=== PATIENT | female | born 1955 | race Caucasian/White ===

== ENCOUNTER 2019-06-30 06:07 | Inpatient (IN) | payer MEDICARE, MEDICAID ==
[~2019-06-30] VITALS: Ht 154.9 cm; Wt 74.4 kg
[~2019-06-30 06:07] MED LIST: LACTATED RINGERS 1,000 ML IV SCH
[2019-06-30] MEDS ORDERED: IPRATROPIUM/ALBUTEROL 0.5-3(2.5)MG/3ML NEB HHN ONE (07:00)
[2019-06-30] MEDS ORDERED: INDOCYANINE GREEN 25 MG VIAL IV ONE (07:02)
[2019-06-30] MEDS ORDERED: BACITRACIN 50,000 UNITS/VIAL ONE (07:03)
[2019-06-30] MEDS ORDERED: BUPIVACAINE HCL/PF 0.5% (5MG/ML) 10ML ONE (07:03)
[2019-06-30] MEDS ORDERED: LIDOCAINE HCL 1% 20ML VIAL (Pyxis) INJ ONE (07:03)
[2019-06-30 07:16] LABS: CHLORIDE 105 mEq/L (98-107)
[2019-06-30] MEDS ORDERED: SKIN ADHESIVE 0.7 GM EA TOP ONE ×2 (07:34→07:35)
[2019-06-30] MEDS ORDERED: LIDOCAINE HCL/PF 1% 10 MG/ML 5ML VIAL ONE (07:38)
[2019-06-30] MEDS ORDERED: MIDAZOLAM HCL 2 MG/2 ML VIAL ONE (07:38)
[2019-06-30] MEDS ORDERED: PROPOFOL 200MG/20ML VIAL IV ONE (07:38)
[2019-06-30] MEDS ORDERED: FENTANYL CITRATE/PF 50MCG/ML 2ML VIAL ONE ×4 (07:38→11:04)
[2019-06-30] MEDS ORDERED: ROCURONIUM BROMIDE 10MG/ML VIAL 5ML IV ONE ×2 (07:38→11:02)
[2019-06-30] MEDS ORDERED: DEXAMETHASONE 4MG/ML 1ML VIAL ONE (07:39)
[2019-06-30] MEDS ORDERED: PHENYLEPHRINE HCL 10 MG/ML 1ML (IV VIAL) IV ONE (07:39)
[2019-06-30] MEDS ORDERED: SUCCINYLCHOLINE CHLORIDE 200MG/10ML IV ONE ×2 (07:39→15:13)
[2019-06-30] MEDS ORDERED: EPHEDRINE SULFATE 50MG/ML VIAL ONE ×2 (07:39→08:43)
[2019-06-30] MEDS ORDERED: SODIUM CHLORIDE 0.9% 10ML VIAL ONE ×2 (07:51→08:30)
[2019-06-30] MEDS ORDERED: GLYCOPYRROLATE 0.2 MG/ML 2ML VIAL ONE ×2 (08:40→11:43)
[2019-06-30] MEDS ORDERED: DOCU-272 PO (11:06)
[2019-06-30] MEDS ORDERED: UMEC1DIS IH (11:06)
[2019-06-30] MEDS ORDERED: HYDR4TAB56 PO (11:06)
[2019-06-30] MEDS ORDERED: OMEP40CA34 PO (11:06)
[2019-06-30] MEDS ORDERED: MONT10TA24 PO (11:06)
[2019-06-30] MEDS ORDERED: DIVA125T31 PO (11:06)
[2019-06-30] MEDS ORDERED: LEVO50TA8 PO (11:06)
[2019-06-30] MEDS ORDERED: DULO60CA64 PO (11:06)
[2019-06-30] MEDS ORDERED: DIAZ10TA4 PO (11:06)
[2019-06-30] MEDS ORDERED: FLOV44 IH (11:06)
[2019-06-30] MEDS ORDERED: NEOSTIGMINE METHYLSULFATE 1MG/ML 10 ML VIAL ONE (11:43)
[2019-06-30] MEDS ORDERED: ESMOLOL HCL 10MG/ML 10ML VIAL IV ONE ×2 (15:21→16:42)
[2019-06-30] MEDS ORDERED: HYDRALAZINE 20MG/ML VIAL ONE (15:24)
[2019-06-30] MEDS ORDERED: HYDROMORPHONE HCL/PF 2MG/ML CPJ IV PRN (17:15)
[2019-06-30] MEDS ORDERED: DIAZEPAM 5 MG TABLET PO PRN (17:30)
[2019-06-30] MEDS ORDERED: HYDROMORPHONE HCL/PF 2MG/ML (OR) ONE (17:43)
[2019-06-30] MEDS: HYDROMORPHONE HCL/PF 2MG/ML CPJ IV PRN ×4 (17:44→19:36)
[2019-06-30 21:02] LABS: CLARITY URINE CLEAR (CLEAR); COLOR URINE YELLOW (YELLOW); KETONES URINE NEGATIVE (NEGATIVE); LEUKOCYTE ESTERASE URINE NEGATIVE (NEGATIVE); NITRITE URINE NEGATIVE (NEGATIVE); OCCULT BLOOD URINE NEGATIVE (NEGATIVE); PROTEIN URINE NEGATIVE (NEGATIVE); SPECIFIC GRAVITY URINE 1.019 (1.005-1.030); UROBILINOGEN URINE 0.2 E.U./dL (0.2-1.0)
[2019-06-30] MEDS ORDERED: HYDRALAZINE 20MG/ML VIAL IV NR (22:00)
[2019-06-30] MEDS ORDERED: CEFAZOLIN SODIUM 1000MG/VIAL IV SCH (22:00)
[2019-06-30 23:00] VITALS: BP 168/105
[2019-07-01] VITALS: BP_SYST 168; BP_SYST 171; BP_DIAS 105; BP_DIAS 113
[2019-07-01] MEDS ORDERED: ENALAPRIL 2.5MG/2ML VIAL 2ML IV PRN (00:15)
[2019-07-01] MEDS ORDERED: HYDROMORPHONE HCL/PF 2MG/ML CPJ IV SCH (00:15)
[2019-07-01] MEDS ORDERED: ENALAPRIL 2.5MG/2ML VIAL 2ML IV SCH (00:30)
[2019-07-01] MEDS ORDERED: HYDROMORPHONE HCL/PF 2MG/ML CPJ IV PRN (01:15)
[2019-07-01] MEDS: SODIUM CHLORIDE 0.45% 1,000 ML IV SCH ×3 (01:21→20:53)
[2019-07-01] MEDS ORDERED: AMLODIPINE 5MG TABLET PO SCH (02:45)
[2019-07-01] MEDS: CEFAZOLIN 1000MG PREMIX 50 ML IV SCH ×3 (03:30→20:50)
[2019-07-01] MEDS: ONDANSETRON HCL 4MG/2ML INJ IV PRN ×2 (03:37→20:50)
[2019-07-01 04:00] VITALS: BP 133/90
[2019-07-01] MEDS: HYDROMORPHONE HCL/PF 2MG/ML CPJ IV PRN ×9 (05:07→23:35)
[2019-07-01] MEDS: OMEPRAZOLE 20MG CAPSULE EXTENDED RELEASE PO SCH (05:12)
[2019-07-01] MEDS: LEVOTHYROXINE SODIUM 50MCG TABLET PO SCH (05:13)
[2019-07-01 06:43] LABS: CHLORIDE 106 mEq/L (98-107)
[2019-07-01 06:51] LABS: BASOPHILS % 0.1 % (0.0-2.0); HEMATOCRIT. 36.6 % (36.0-48.0); HEMOGLOBIN. 12.2 g/dL (12.0-16.0); LYMPHOCYTES % 9.3 % (20.0-50.0); MEAN CORPUSCULAR HEMOGLOBIN 30.6 pg (28.0-32.0); MEAN CORPUSCULAR VOLUME 91.9 fL (81.0-99.0); MEAN PLATELET VOLUME 7.4 fl (7.4-10.4); MONOCYTES % 7.8 % (2.0-8.0); NEUTROPHILS % 82.8 % (40.0-76.0); PLATELET 277 x1000/uL (130-400); RED BLOOD CELL COUNT 3.98 mill/uL (4.2-5.4); RED CELL DISTRIBUTION WIDTH 13.8 % (11.6-14.6)
[2019-07-01 08:00] VITALS: BP 145/102
[2019-07-01] MEDS: BUSPIRONE HCL 10MG TABLET PO SCH ×2 (09:03→20:50)
[2019-07-01] MEDS: DULOXETINE HCL 60MG DR CAPSULE PO SCH (09:03)
[2019-07-01] MEDS: ENOXAPARIN 40MG/0.4ML SYR SUBCUT SCH (09:04)
[2019-07-01] MEDS: LIDOCAINE 5% PATCH TOP SCH (09:05)
[2019-07-01 12:00] VITALS: BP 124/83
[2019-07-01] MEDS: LEVOFLOXACIN 500MG TABLET PO SCH (12:02)
[2019-07-01 16:00] VITALS: BP 110/81
[2019-07-01] MEDS: MONTELUKAST SODIUM 10MG TABLET PO SCH (17:42)
[2019-07-01] MEDS: DIVALPROEX SODIUM 125MG EC TABLET PO SCH (17:42)
[2019-07-01 20:00] VITALS: BP 146/99
[2019-07-02] VITALS: BP 140/80
[2019-07-02] MEDS: ONDANSETRON HCL 4MG/2ML INJ IV PRN (01:43)
[2019-07-02] MEDS: HYDROMORPHONE HCL/PF 2MG/ML CPJ IV PRN ×10 (01:44→23:01)
[2019-07-02] MEDS: CEFAZOLIN 1000MG PREMIX 50 ML IV SCH ×3 (03:29→18:23)
[2019-07-02 04:00] VITALS: BP 130/75
[2019-07-02] MEDS: LEVOTHYROXINE SODIUM 50MCG TABLET PO SCH (06:01)
[2019-07-02] MEDS: SODIUM CHLORIDE 0.45% 1,000 ML IV SCH ×2 (06:01→18:24)
[2019-07-02] MEDS: OMEPRAZOLE 20MG CAPSULE EXTENDED RELEASE PO SCH (06:01)
[2019-07-02 07:51] LABS: BASOPHILS % 0.1 % (0.0-2.0); HEMATOCRIT. 32.3 % (36.0-48.0); HEMOGLOBIN. 10.7 g/dL (12.0-16.0); LYMPHOCYTES % 11.3 % (20.0-50.0); MEAN CORPUSCULAR HEMOGLOBIN 30.8 pg (28.0-32.0); MEAN CORPUSCULAR VOLUME 92.9 fL (81.0-99.0); MEAN PLATELET VOLUME 7.1 fl (7.4-10.4); MONOCYTES % 6.2 % (2.0-8.0); NEUTROPHILS % 82.4 % (40.0-76.0); PLATELET 236 x1000/uL (130-400); RED BLOOD CELL COUNT 3.48 mill/uL (4.2-5.4); RED CELL DISTRIBUTION WIDTH 14.2 % (11.6-14.6)
[2019-07-02 08:00] VITALS: BP 123/81
[2019-07-02 08:10] LABS: CHLORIDE 104 mEq/L (98-107)
[2019-07-02] MEDS: BUSPIRONE HCL 10MG TABLET PO SCH ×2 (08:27→20:53)
[2019-07-02] MEDS: DULOXETINE HCL 60MG DR CAPSULE PO SCH (08:27)
[2019-07-02] MEDS: ENOXAPARIN 40MG/0.4ML SYR SUBCUT SCH (08:27)
[2019-07-02] MEDS: LIDOCAINE 5% PATCH TOP SCH (08:29)
[2019-07-02] MEDS ORDERED: PNEUMOCOCCAL 23-VAL P-SAC VAC 0.5 ML IM ONE (09:00)
[2019-07-02] MEDS ORDERED: INFLUENZA VIRUS VACCINE(AFLURIA) 0.5ML SYR IM ONE (09:00)
[2019-07-02] MEDS: LEVOFLOXACIN 500MG TABLET PO SCH (11:23)
[2019-07-02 12:00] VITALS: BP 158/90
[2019-07-02 16:00] VITALS: BP 121/93
[2019-07-02] MEDS: MONTELUKAST SODIUM 10MG TABLET PO SCH (16:08)
[2019-07-02] MEDS: DIVALPROEX SODIUM 125MG EC TABLET PO SCH (16:08)
[2019-07-03] VITALS: BP_SYST 123; BP_SYST 93; BP_DIAS 55; BP_DIAS 70
[2019-07-03] MEDS: HYDROMORPHONE HCL/PF 2MG/ML CPJ IV PRN ×6 (02:05→14:47)
[2019-07-03] MEDS: CEFAZOLIN 1000MG PREMIX 50 ML IV SCH ×2 (03:36→11:13)
[2019-07-03 04:00] VITALS: BP 121/76
[2019-07-03] MEDS: SODIUM CHLORIDE 0.45% 1,000 ML IV SCH ×2 (04:09→12:27)
[2019-07-03] MEDS: LEVOTHYROXINE SODIUM 50MCG TABLET PO SCH (06:27)
[2019-07-03] MEDS: OMEPRAZOLE 20MG CAPSULE EXTENDED RELEASE PO SCH (06:27)
[2019-07-03 06:40] LABS: BASOPHILS % 0.2 % (0.0-2.0); EOSINOPHILS % 0.2 % (0.0-5.0); HEMATOCRIT. 28.2 % (36.0-48.0); HEMOGLOBIN. 9.4 g/dL (12.0-16.0); LYMPHOCYTES % 15.3 % (20.0-50.0); MEAN CORPUSCULAR HEMOGLOBIN 31.1 pg (28.0-32.0); MEAN CORPUSCULAR VOLUME 93.8 fL (81.0-99.0); MEAN PLATELET VOLUME 7.2 fl (7.4-10.4); MONOCYTES % 5.4 % (2.0-8.0); NEUTROPHILS % 78.9 % (40.0-76.0); PLATELET 218 x1000/uL (130-400); RED BLOOD CELL COUNT 3.01 mill/uL (4.2-5.4); RED CELL DISTRIBUTION WIDTH 13.7 % (11.6-14.6)
[2019-07-03 07:05] LABS: CHLORIDE 105 mEq/L (98-107)
[2019-07-03 08:00] VITALS: BP 104/75
[2019-07-03] MEDS: LIDOCAINE 5% PATCH TOP SCH (08:49)
[2019-07-03] MEDS: DULOXETINE HCL 60MG DR CAPSULE PO SCH (08:51)
[2019-07-03] MEDS: BUSPIRONE HCL 10MG TABLET PO SCH (08:52)
[2019-07-03] MEDS ORDERED: ENOXAPARIN 30MG/0.3ML SYR SUBCUT SCH (09:00)
[2019-07-03] MEDS: LEVOFLOXACIN 500MG TABLET PO SCH (11:14)
[2019-07-03 12:00] VITALS: BP 117/86
[2019-07-03 16:00] VITALS: BP 116/73
[2019-07-03 16:22] VITALS: BP 117/86
== END 2019-07-03 18:28 | DRG 418 ==
LOC: OR 06:07 → 5WST 23:41
PROVIDERS: ADMIT Internal Medicine; ATTEND Specialist
PROC: 0FT44ZZ Resection of Gallbladder, Percutaneous Endoscopic Approach (ICD-10-PCS; principal; 2019-06-30)
PROC: 0WUF4JZ Supplement Abdominal Wall with Synthetic Substitute, Percutaneous Endoscopic Approach (ICD-10-PCS; 2019-06-30)
PROC: 8E0W4CZ Robotic Assisted Procedure of Trunk Region, Percutaneous Endoscopic Approach (ICD-10-PCS; 2019-06-30)
DX: K80.20 Calculus of gallbladder without cholecystitis without obstruction (principal); K43.6 Other and unspecified ventral hernia with obstruction, without gangrene; E03.9 Hypothyroidism, unspecified; F31.9 Bipolar disorder, unspecified; J44.9 Chronic obstructive pulmonary disease, unspecified; Z90.710 Acquired absence of both cervix and uterus; Z87.440 Personal history of urinary (tract) infections; E66.9 Obesity, unspecified; Z68.31 Body mass index [BMI] 31.0-31.9, adult
CPT/HCPCS: 36415; 80048; 81003; 88304; 90686; 90732; 93005; 93970; 94002; 94640; 97162; 97530; C1781; J0330; J0360; J0690; J1100; J1170; J1650; J2250; J2370; J2405; J2704; J2710; J3010; J3490; Q9957; A4315

== ENCOUNTER 2019-08-21 20:34 | Emergency (ER) | payer MEDICARE, MEDICAID ==
[~2019-08-21] VITALS: Ht 160 cm; Wt 61.0 kg
[~2019-08-21 20:34] MED LIST changes: +DIAZ10TA4 PO; +DIVA125T31 PO; +DOCU-272 PO; +DULO60CA64 PO; +FLOV44 IH; +HYDR4TAB56 PO; -LACTATED RINGERS 1,000 ML IV SCH; +LEVO50TA8 PO; +MONT10TA24 PO; +OMEP40CA34 PO; +UMEC1DIS IH
[2019-08-21 23:13] VITALS: BP 137/86
== END 2019-08-22 00:21 | disposition home or self-care (01) ==
LOC: ER 20:34
DX: R22.0 Localized swelling, mass and lump, head (principal); T36.8X5A Adverse effect of other systemic antibiotics, initial encounter; Y92.89 Other specified places as the place of occurrence of the external cause; J01.90 Acute sinusitis, unspecified
CPT/HCPCS: 99283